=== PATIENT | female | born 1985 | race Two or more races ===

== ENCOUNTER 2016-09-16 15:51 | Emergency (ER) | payer BC ==
[2016-09-16] MEDS ORDERED: HYDROMORPHONE HCL 1 MG/ML SYRINGE ONE (16:12)
[2016-09-16] MEDS ORDERED: ONDANSETRON 4 MG/2ML 2 ML VIAL ONE (16:12)
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
[2016-09-16] MEDS ORDERED: DIPHTH,PERTUSS(ACELL),TET VAC 0.5 ML VIAL IM V ONE (17:19)
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
== END 2016-09-16 17:31 | disposition home or self-care (01) ==
LOC: ED 15:51
DX: S43.004A Unspecified dislocation of right shoulder joint, initial encounter (principal); S00.81XA Abrasion of other part of head, initial encounter; S40.819A Abrasion of unspecified upper arm, initial encounter; S10.91XA Abrasion of unspecified part of neck, initial encounter; Z23 Encounter for immunization; Y04.2XXA Assault by strike against or bumped into by another person, initial encounter; Y93.89 Activity, other specified; Y92.009 Unspecified place in unspecified non-institutional (private) residence as the place of occurrence of the external cause